=== PATIENT | male | born 2000 | race Two or more races ===

== ENCOUNTER 2025-06-04 19:13 | Emergency (ER) | payer OTHER, SELFPAY ==
--- NOTE | ~2025-06-04 | XR_ITS ---
CLINICAL HISTORY: SOB 1 view chest x-ray Comparison: None provided Findings: The lungs are clear. Normal size heart. No acute fracture. IMPRESSION: 1. No acute findings. This document has been electronically signed by: Guanaco Nolan MD on 06/04/2025 20:13:06
[2025-06-04 19:20] VITALS: BP 207/91; PULSE 105; RESP 20; TEMP 36.3; O2SAT 95; BMI 29.8
--- NOTE | 2025-06-04 19:21 | ED_ITS ---
HPI - General Adult General Chief complaint: Dyspnea Stated complaint: difficulty breathing; swollen throat Time Seen by Provider: 06/04/25 19:31 History of Present Illness ED Provider: Dr. Ladd HPI narrative: 25 y/o M patient: PMH asthma; presents from home reporting SOB and throat tightness. The patient states he was around friends who smoked marijuana yesterday. When he woke up this morning he noticed his difficulty breathing. The patient states his last asthma attack was in his teens. He was between primary doctors at one point and no longer has a prescription for an inhaler. The patient otherwise denies: fever or chills, nausea/vomiting, abdominal pain, diarrhea, chest pain. He states he does currently have a primary doctor. Related Data Previous Rx's ?Medication ?Instructions ?Recorded albuterol sulfate 90 mcg/actuation 2 puff inhalation 6 XD PRN 06/04/25 aerosol inhaler (Ventolin HFA) shortness of breath or wheezing 1 week #8.5 grams prednisone 50 mg tablet 50 mg PO DAILY 4 days #4 tab s 06/04/25 Allergies Allergy/AdvReac Type Severity Reaction Status Date / Time cat dander Allergy Intermediate Swelling Verified 06/04/25 19:23 dog dander Allergy Intermediate Swelling Verified 06/04/25 19:23 Review of Systems Review of Systems: Yes all other systems are reviewed and are negative PMFSH Past Medical History Attestation statement: The following information was validated with the patient. Source: unable to obtain Social History Social History Smoked in Last 30 Days: No Use of substances other than those prescribed or required for medical reasons: No Advance Directives: No Advance Directives Information Provided: Yes Physical Exam ED Vital Signs: Vital Signs - 24 hr 06/04/25 19:20 06/04/25 19:37 06/04/25 21:48 Temperature 97.3 F Pulse Rate 105 H 97 110 H Respiratory Rate 20 12 14 Blood Pressure 207/91 H 115/83 Pulse Oximetry 95 98 Oxygen Delivery Method Room Air Room Air BMI result Body Mass Index 29.8 Patient is afebrile, mildly tachycardic, and hypertensive. Const General: cooperative HENMT Head: Yes normal to inspection and Yes atraumatic Throat: Yes posterior oropharynx normal Eyes General: appearance normal, both eyes and all related structures Conjunctivae: conjunctivae normal Pupils: Equal, round and reactive pupils present EOM: EOMs intact bilaterally Neck Neck: Yes normal visual inspection, Yes full ROM, Yes supple and No tender Chest Chest palpation & inspection: normal inspection of the chest and normal palpation of entire chest wall Resp Effort & Inspection: able to speak in complete sentences and audible wheezes Auscultation: wheezes Cardio Rate: tachycardic Rhythm: regular rhythm Peripheral pulses: Peripheral pulses 2+ throughout GI Inspection: Yes normal to inspection, No Abdominal wall edema and No distended Palpation (GI): Soft to palpation, not firm, nontender, no guarding and not rigid Auscultation: normal bowel sounds Back/Spine/Pelvis Back: No back tenderness Neuro Cranial nerves: Yes Equal, round and reactive pupils present Course Course Course Narrative: This is an RME: Additional HPI, ROS, PE not included below will be deferred to primary provider. RME assessment and note performed by: Kim Reynolds PA-C This is a [id number], with a hx of asthma, who presents to the ER with concerns for shortness of breath. Reports that he also feels his throat is swollen and painful. Lungs with inspiratory and expiratory wheezes noted throu ghout all lung mccoy. BP elevated in triage. States that he awoke with the symptoms and has been worsening since. Reports that he was out with friends yesterday who is smoking around him. Plan: covid, flu, xray, ED bronch protocol Reevaluation(s) Reevaluation #1: Patient is afebrile, mildly tachycardic, and hypertensive. Provided Prednisone 60mg PO. COVID and influenza negative. CXR unremarkable for pneumonia or other focal infiltrate. Will plan on period of observation. Following ED bronchodilator treatment patient states his shortness of breath has significantly improved. Plan: Discharge to home with PCP follow up Return precautions given Rx albuterol inhaler & prednisone sent to pharmacy Provided teaching on use of spacer Reevaluation #2: Patient feels much better, able to ambulate in the ED with steady O2 sat of 98%, improvement of HR 106 bpm. Likely secondary to multiple doses of albuterol patient was instructed to abstain from smoking or exposure to marijuana in the future. Time: 22:58 Medications Administered Discontinued Medications Generic Name Dose Route Start Last Admin Trade Name Freq PRN Reason Stop Dose Admin Albuterol Sulfate 1 puff 06/04/25 20:33 06/04/25 21:30 Albuterol Sulfate 90 Mcg 8 Gm Inhaler INHALE 06/04/25 20:34 1 puff ONCE ONE Administration Albuterol Sulfate 5 mg/ 0 mg 06/04/25 19:34 06/04/25 19:38 Albuterol/Ipratropium 3 ml INHALE 06/04/25 19:35 7.5 each ONCE ONE Administration Prednisone 60 mg 06/04/25 19:40 06/04/25 21:47 Prednisone 20 Mg Tablet PO 06/04/25 19:41 60 mg ONCE ONE Administration Medical Decision Making Lab Data Labs: Lab Results 06/04/25 Range/Units 19:53 COVID-19 (JEFFERY) Negative (Negative) COVID-19 Clin Com See Note Influenza Type A ([facility]) Negative (Negative) Influenza Type B ([facility]CA) Negative (Negative) Influenza A & B Note See Note Radiology Impression Discussion of test interpretation with radiology: I have reviewed the radio logist's reading. Radiologist Impression: CLINICAL HISTORY: SOB 1 view chest x-ray Comparison: None provided Findings: The lungs are clear. Normal size heart. No acute fracture. IMPRESSION: 1. No acute findings. This document has been electronically signed by: Guanaco Nolan MD on 06/04/2025 20:13:06 Discharge Plan Discharge Clinical Impression: Asthma with exacerbation Patient Disposition: Home, Self-Care Instructions: Asthma (DC) Additional Instructions: You were seen today after an asthma exacerbation. You were treated with a breathing treatment and a steroid. You need to take the steroid once a day for the next 4 days. You can also take 2 puffs of the inhaler every 4 hours as needed for difficulty breathing. I would follow up with your primary doctor to discuss your recent emergency department visit and for a re-evaluation. Prescriptions: New prednisone 50 mg tablet 50 mg PO DAILY 4 Days Qty: 4 0RF albuterol sulfate [Ventolin HFA] 90 mcg/actuation HFA aerosol inhaler 2 puff inhalation 6XD PRN (Reason: shortness of breath or wheezing) 7 Days Qty: 8.5 0RF Print Language: Telugu
[2025-06-04 19:37] VITALS: PULSE 97; RESP 12; O2SAT 93
[2025-06-04] MEDS: Albuterol Sulfate 5 MG, Albuterol/Iprat 2.5/0.5MG 3 ML 3 ML INHALE (19:38)
--- NOTE | 2025-06-04 19:42 | PC.NURSE ---
RN alerted of patient's need to be brought back to a room due to his shortness of breath with hx of asthma and throat tightness. The pt was observed and noted to independently ambulate from the waiting room to ED bed 22 without distress noted and/or assistance required. The pt is well appearing, respirations even and unlabored and conversing freely. The pt was placed on the electronic device monitor and found to be sinus tach on the electronic device monitor, tightness noted to his bilateral lower lobes. RT to bedside for assessment, the pt was started on a neb treatment as he reports not having a PCP at the moment and is out of his nebulizer and inhaler medications at this time. Call dan in place
[2025-06-04 20:14] LABS: COVID-19 Test Negative (Negative); IDNOW Serial# 55D5AD1C; IDNOW Serial# 58CA691E; Influenza B2 Negative (Negative)
[2025-06-04] MEDS: Albuterol Sulfate 90 MCG 8 GM INHALER 1 PUFF INHALE (21:30)
[2025-06-04 21:48] VITALS: BP 115/83; PULSE 110; RESP 14; O2SAT 98
--- NOTE | 2025-06-04 22:13 | MHC.EDTECH ---
Did ambulation trial. Pt stayed at 98 % the entire time walking. Asked if he felt sob at all. Pt denies any sob or light headness
[2025-06-04 23:10] VITALS: BP 123/87; PULSE 87; RESP 12; TEMP 36.9; O2SAT 96
[2025-06-04 23:21] VITALS: BP 123/87; PULSE 87; RESP 12; TEMP 36.9; O2SAT 96
== END 2025-06-04 23:23 | disposition home or self-care (01) ==
PROVIDERS: Physician Assistant Medical; Emergency Provider Emergency Medicine
DX: J45.901 Unspecified asthma with (acute) exacerbation (principal); R06.02 Shortness of breath; Z03.818 Encounter for observation for suspected exposure to other biological agents ruled out
CPT/HCPCS: 71045; 87502; 87635; 94640; 99284; 99285

== ENCOUNTER → 2025-06-04 19:26 | Outpatient (BNV) | payer OTHER, SELFPAY | PROVIDERS: Emergency Provider Emergency Medicine; Visit Provider Radiology Diagnostic Radiology | DX: R06.02 Shortness of breath (principal) | CPT/HCPCS: 71045 ==